=== PATIENT | female | born 1945 | race Caucasian/White ===

== ENCOUNTER → 2017-04-05 | Outpatient (CLI) | payer MEDICARE ==
[~2017-04-05] MED LIST: ALPR0.254 PO; ASPI-515 PO; CALC-471 PO; CETI-158 PO; CYCL1DRO IO; DILT240C PO; FLUT16SP2 NAS; LEVO50TA5 PO; MULT-658 PO; NABU500T PO; OMEP-110 PO; OMNIPAQUE 350 MG/ML, 75ML BOTTLE ONE; PANT40TA5 PO; POTA10TA90 PO; PRAV40TA2 PO; TORS10TA4 PO
== END | disposition home or self-care (01) ==
LOC: CFH 13:02
PROVIDERS: ATTEND Genetic Counselor, MS
DX: Z12.31 Encounter for screening mammogram for malignant neoplasm of breast (principal); R91.1 Solitary pulmonary nodule; M85.88 Other specified disorders of bone density and structure, other site; N95.9 Unspecified menopausal and perimenopausal disorder; Z87.891 Personal history of nicotine dependence
CPT/HCPCS: 71260; 77063; 77080; G0202; Q9967

== ENCOUNTER → 2018-03-08 | Outpatient (CLI) | payer MEDICARE ==
[~2018-03-08] MED LIST changes: +POTA10TA6 PO; -POTA10TA90 PO
== END | disposition home or self-care (01) ==
LOC: CFH 08:40
PROVIDERS: ATTEND Genetic Counselor, MS
DX: R91.8 Other nonspecific abnormal finding of lung field (principal)
CPT/HCPCS: 71260; 82565; Q9967

== ENCOUNTER 2019-05-07 13:35 | Outpatient (CLI) | payer MEDICARE | END 2019-05-07 23:59 | disposition home or self-care (01) | LOC: CFH 13:35 | PROVIDERS: ATTEND Genetic Counselor, MS | DX: Z12.31 Encounter for screening mammogram for malignant neoplasm of breast (principal); R91.1 Solitary pulmonary nodule; M85.88 Other specified disorders of bone density and structure, other site; N95.1 Menopausal and female climacteric states | CPT/HCPCS: 71250; 77063; 77067; 77080 ==